=== PATIENT | male | born 1985 | race African-American/Black ===

== ENCOUNTER 2020-09-25 01:25 | Emergency (ER) | payer BC ==
[~2020-09-25] VITALS: Ht 195.6 cm; Wt 114.0 kg
[2020-09-25] MEDS ORDERED: ONDA4TAB5 MT (04:12)
[2020-09-25] MEDS ORDERED: IBUP-2030 MT (04:12)
[2020-09-25 04:21] VITALS: BP 112/87
== END 2020-09-25 04:23 | disposition home or self-care (01) ==
LOC: ER 01:25
DX: R51.9 Headache, unspecified (principal); R03.0 Elevated blood-pressure reading, without diagnosis of hypertension
CPT/HCPCS: 99283

== ENCOUNTER 2021-10-29 06:23 | Emergency (ER) | payer BC ==
[~2021-10-29] VITALS: Ht 195.6 cm; Wt 118.0 kg
[~2021-10-29 06:23] MED LIST: IBUP-2030 MT; ONDA4TAB5 MT
[2021-10-29] MEDS ORDERED: ACETAMINOPHEN 325MG TABLET PO ONE (07:15)
[2021-10-29] MEDS ORDERED: KETOROLAC 60MG/2ML VIAL IM ONE (07:15)
[2021-10-29 08:17] VITALS: BP 132/73
[2021-10-29] MEDS ORDERED: TOPUD PO (08:57)
[2021-10-29] MEDS ORDERED: NIRM1TAB PO (08:57)
== END 2021-10-29 09:07 | disposition home or self-care (01) ==
LOC: ER 06:23
DX: U07.1 COVID-19 (principal)
CPT/HCPCS: 71045; 87426; 96372; 99284; C9803; J1885